=== PATIENT | female | born 1945 | race African-American/Black ===

== ENCOUNTER 2024-10-09 15:07 | Emergency (ER) | payer OTHER ==
[~2024-10-09] VITALS: Ht 170.2 cm; Wt 114.0 kg
[2024-10-09 15:09] VITALS: O2SAT 100
[2024-10-09 15:49] LABS: CHLORIDE 105 mEq/L (98-107); HEMATOCRIT. 43.6 % (36.0-48.0); HEMOGLOBIN. 13.9 g/dL (12.0-16.0); MEAN CORPUSCULAR HGB CONC 31.9 g/dL (31.0-37.0); PLATELET 216 x1000/uL (130-400); POTASSIUM 4.3 mEq/L (3.5-5.1); RED BLOOD CELL COUNT 4.79 mill/uL (4.2-5.4); RED CELL DISTRIBUTION WIDTH 14.7 % (11.6-14.6); SODIUM 141 mEq/L (136-145); WHITE BLOOD COUNT 9.5 x1000/uL (4.5-11.0)
[2024-10-09 15:50] LABS: CALCIUM 9.9 mg/dL (8.7-10.4); CARBON DIOXIDE 29 mEq/L (21-32); DIFFERENTIAL COMMENT 1
[2024-10-09 15:55] LABS: CREATININE 0.7 mg/dL (0.6-1.0); GLUCOSE 103 mg/dL (70-105); UREA NITROGEN BLOOD 14 mg/dL (9-23)
[2024-10-09 15:56] LABS: TROPONIN I HIGH SENSITIVITY 8 ng/L (3.0-34)
[2024-10-09 17:02] LABS: PLATELET ESTIMATE NORMAL
[2024-10-09] MEDS: FUROSEMIDE 40MG/4ML VIAL IVP ONE (18:38)
[2024-10-09 18:40] VITALS: TEMP 36.9
[2024-10-09] MEDS ORDERED: HYDROCODONE/ACETAMINOPHEN 5/325MG TABLET PO PRN (20:00)
[2024-10-09] MEDS ORDERED: DEXTROSE 50% WATER 50ML SYRINGE IV PRN (20:00)
[2024-10-09] MEDS ORDERED: IPRATROPIUM/ALBUTEROL 0.5-3(2.5)MG/3ML NEB HHN PRN (20:00)
[2024-10-09] MEDS ORDERED: NA PHOS,M-B/NA PHOS,DI-BA ENEMA 118ML PR PRN (20:00)
[2024-10-09] MEDS ORDERED: DOCUSATE SODIUM 100MG CAPSULE PO PRN (20:00)
[2024-10-09] MEDS ORDERED: ONDANSETRON HCL 4MG/2ML INJ IV PRN (20:00)
[2024-10-09] MEDS ORDERED: MAGNESIUM/ALUMINUM HYDROXIDE/SIMETHICONE 30ML UDC PO PRN (20:00)
[2024-10-09] MEDS ORDERED: ACETAMINOPHEN 325MG TABLET PO PRN ×2 (20:00)
[2024-10-09] MEDS ORDERED: GUAIFENESIN 200MG/10ML SUGAR FREE UDC PO PRN (20:00)
[2024-10-09] MEDS: CLONIDINE 0.1MG TABLET PO PRN (20:34)
[2024-10-09] MEDS: BLOOD SUGAR DIAGNOSTIC STRIP TEST SCH (20:54)
[2024-10-09] MEDS: LACTATED RINGERS 1,000 ML IV SCH (20:54)
[2024-10-09] MEDS: HYDRALAZINE 20MG/ML VIAL IV NR (21:01)
[2024-10-09 21:16] LABS: PHOSPHORUS 3.2 mg/dL (2.5-4.9)
[2024-10-09 21:20] VITALS: BP 166/63; PULSE 88; RESP 21; O2SAT 99
== END 2024-10-09 22:00 | disposition short-term general hospital (02) ==
LOC: ER 15:07
DX: S00.83XA Contusion of other part of head, initial encounter (principal); R60.0 Localized edema; Z98.890 Other specified postprocedural states; W19.XXXA Unspecified fall, initial encounter; Y93.01 Activity, walking, marching and hiking; Y92.89 Other specified places as the place of occurrence of the external cause; Y99.9 Unspecified external cause status
CPT/HCPCS: 99285; 70450; 96374; 71045; 96375; 80048; 82962; 83036; 83880; 83735; 84100; 85025; 85610; 87040; 84484; 36415; 70486; 72125; 93005; J1940; J0360